=== PATIENT | female | born 1990 | race Caucasian/White ===

== ENCOUNTER 2016-10-31 08:56 | Inpatient (IN) | payer BC ==
[~2016-10-31] VITALS: Ht 152.4 cm; Wt 67.0 kg
[2016-10-31] VITALS (11 sets, daily range): BP systolic 114–121; BP diastolic 57–89; PULSE 62–80; RESP 12–27; TEMP 99.1
[~2016-10-31 08:56] MED LIST: BACTDS PO; CEFAZOLIN 1 GM INJ ONE; CEPH-443 PO; EXEDRIN; IBUP-1542 PO; ONDA4TAB14 PO
[2016-10-31] MEDS ORDERED: ONDANSETRON 4 MG INJ IV STA (10:26)
[2016-10-31] MEDS ORDERED: morphine 2 MG INJ IV STA (10:26)
[2016-10-31 10:56] LABS: ADD SCAN DIFF NO
[2016-10-31 10:58] LABS: BASOPHILS % 0.3 % (0.0-2.0); EOSINOPHILS # 0.1 10^3/ul (0.0-0.5); HEMATOCRIT 40.8 % (37.0-47.0); HEMOGLOBIN 13.8 g/dl (12.0-16.0); LYMPHOCYTES # 1.5 10^3/ul (0.8-2.9); LYMPHOCYTES % 19.7 % (15.0-51.0); MEAN CORPUSCULAR HEMOGLOBIN 31.8 pg (29.0-33.0); MEAN CORPUSCULAR HGB CONC 33.8 g/dl (32.0-37.0); MEAN PLATELET VOLUME 9.8 fl (7.4-10.4); MONOCYTE # 0.5 10^3/ul (0.3-0.9); MONOCYTES % 6.9 % (0.0-11.0); NEUTROPHIL # 5.6 10^3/ul (1.6-7.5); NEUTROPHILS % 71.5 % (39.0-77.0); PLATELET COUNT 310 10^3/UL (140-415); RED BLOOD COUNT 4.34 10^6/ul (4.20-5.40); WHITE BLOOD COUNT 7.8 10^3/ul (4.8-10.8)
--- NOTE | 2016-10-31 11:02 | ERD ---
ER Documentation Chief Complaint Date/Time DATE: 10/31/16 TIME: 11:00 Chief Complaint RIGHT LOWER QUADRANT PAIN,NAUSEA HPI 26-year-old female otherwise healthy with no known prior history of abdominal surgeries presents with abdominal pain in the right lower quadrant for the past 4 days. Patient states that her pain is radiating to the left lower quadrant as well. It is described as mild to moderate, dull and achy. She states that it improved yesterday with ibuprofen. No fevers or chills. She reports nausea but no vomiting. No blood in stools. She denies any vaginal bleeding. Patient 's last oral intake was at 2 AM this morning. ROS All systems reviewed and are negative except as per history of present illness. Medications Home Meds Active Scripts Ondansetron (Ondansetron Odt) 4 Mg Tab.rapdis, 4 MG PO Q6H Y for NAUSEA AND/OR VOMITING, #15 TAB Prov:HERBER DE LA GARZA PA-C 07/03/16 Ibuprofen* (Motrin*) 600 Mg Tab, 600 MG PO Q6H Y for PAIN AND OR ELEVATED TEMP, #30 TAB Prov:HERBER DE LA GARZA PA-C 07/03/16 Sulfamethoxazole-Trimethoprim* (Bactrim* DS) 800-160 Mg Tab, 1 TAB PO BID for 7 Days, TAB Prov:JAGRUTI GILMORE 04/07/15 Cephalexin* (Keflex*) 500 Mg Capsule, 500 MG PO QID for 7 Days, CAP Prov:JAGRUTI GILMORE 04/07/15 Reported Medications [Exedrin, Otc, Prn] No Conflict Check 09/19/12 Allergies Allergies: Coded Allergies: doxycycline (Verified Allergy, Mild, 10/31/16) PMhx/Soc Medical and Surgical Hx: pt denies Medical Hx, pt denies Surgical Hx History of Surgery: No Anesthesia Reaction: No Hx Neurological Disorder: No Hx Respiratory Disorders: No Hx Cardiac Disorders: No Hx Psychiatric Problems: No Hx Miscellaneous Medical Probl: No Hx Alcohol Use: No Hx Substance Use: No Hx Tobacco Use: No Smoking Status: Never smoker Physical Exam Vitals Vital Signs Date Time Temp Pulse Resp B/P Pulse Ox O2 Delivery O2 Flow Rate FiO2 10/31/16 09:15 98.6 71 18 109/69 98 Physical Exam = General: Well-developed, well-nourished. The patient appears in no acute distress. HEENT: Head is normocephalic, atraumatic. No scleral icterus. Neck: Supple. Nontender. Lungs: Clear to auscultation. Normal air movement. Heart: Regular rate and rhythm. S1 and S2 are normal. No murmurs, gallops, or rubs. Abdomen: Soft, tender in the right lower quadrant, with rebound pain nondistended. Bowel sounds are normoactive. Negative Bruce sign. Extremities: No clubbing or cyanosis. Normal pulses. Moving extremities x 4. No weakness. Neurologic: Alert and oriented 3. No focal deficits. Skin: Normal turgor. No rash or lesions. Result Diagram: 10/31/16 1040 10/31/16 1040 Results 24 hrs Laboratory Tests Test 10/31/16 10:40 10/31/16 10:57 White Blood Count 7.810^3/ul Red Blood Count 4.3410^6/ul Hemoglobin 13.8g/dl Hematocrit 40.8% Mean Corpuscular Volume 94.0fl Mean Corpuscular Hemoglobin 31.8pg Mean Corpuscular Hemoglobin Concent 33.8g/dl Red Cell Distribution Width 12.0% Platelet Count 95449^3/UL Mean Platelet Volume 9.8fl Neutrophils % 71.5% Lymphocytes % 19.7% Monocytes % 6.9% Eosinophils % 1.0% Basophils % 0.3% Nucleated Red Blood Cells % 0.0/100WBC Neutrophils # 5.610^3/ul Lymphocytes # 1.510^3/ul Monocytes # 0.510^3/ul Eosinophils # 0.110^3/ul Basophils # 0.010^3/ul Nucleated Red Blood Cells # 0.010^3/ul Sodium Level 145mmol/L Potassium Level 4.2mmol/L Chloride Level 103mmol/L Carbon Dioxide Level 29mmol/L Anion Gap 17 Blood Urea Nitrogen 11mg/dl Creatinine 0.51mg/dl Glucose Level 79mg/dl Calcium Level 9.4mg/dl Total Bilirubin 0.7mg/dl Direct Bilirubin 0.00mg/dl Indirect Bilirubin 0.7mg/dl Aspartate Amino Transf (AST/SGOT) 16IU/L Alanine Aminotransferase (ALT/SGPT) 19IU/L Alkaline Phosphatase 75IU/L Total Protein 7.9g/dl Albumin 4.6g/dl Globulin 3.30g/dl Albumin/Globulin Ratio 1.39 Lipase 109U/L Urine Color LT. YELLOW Urine Clarity CLEAR Urine pH 7.0 Urine Specific [place] <=1.005 Urine Ketones NEGATIVE Urine Nitrite NEGATIVE Urine Bilirubin NEGATIVE Urine Urobilinogen 0.2 E.U./dL Urine Leukocyte Esterase 1+ Urine Microscopic RBC 0-2/HPF Urine Microscopic WBC 2-5/HPF Urine Epithelial Cells OCCASIONAL Urine Bacteria OCCASIONAL Urine Hemoglobin TRACE Urine Glucose NEGATIVE% Urine Total Protein NEGATIVE Current Medications Medications (Trade) Dose Ordered Sig/Olesya Route PRN Reason Start Time Stop Time Status Last Admin Dose Admin Morphine Sulfate (morphine) 2 mg ONCE STAT IV 10/31/16 10:26 10/31/16 10:29 DC Ondansetron HCl 4 mg 4 mg ONCE STAT IV 10/31/16 10:26 10/31/16 10:29 DC Piperacillin Sod/ Tazobactam Sod (Zosyn 3.375gm/ 100 ml (Pmx)) 100 ml @ 200 mls/hr ONCE ONCE IVPB 10/31/16 12:30 10/31/16 12:59 DC 10/31/16 12:51 12-lead EKG(interpreted by supervising physician): Dr. Delvalle Rate/Rhythm: Normal Sinus Rhythm, rate of 54 QRS, ST, T-waves: No changes consistent w/ acute ischemia, no intervals, no dysrhythmias, no ectopy Impression: No evidence of ischemia or arrhythmia PROCEDURE: XR Chest PA CLINICAL INDICATION: Preop TECHNIQUE: An PA radiograph of the chest was submitted. COMPARISON: None. FINDINGS: Cardiovascular: The cardiovascular silhouette appears unremarkable. Lung Yuan: The lung yuan appear clear with no nodule, alveolar infiltrate, or interstitial prominence evident. Pleural Spaces: There is no pneumothorax or pleural fluid accumulation evident. Osseous Structures: The osseous structures appear intact. Soft Tissues: The soft tissues appear unremarkable. IMPRESSION: Unremarkable PA chest. Physician Charito Date Time Electronically viewed and signed by Physician Charito on 10/31/2016 12:56 RH/ CC: KING LOFTON PA-C PROCEDURE: CT Abdomen and Pelvis without contrast CLINICAL INDICATION: Right lower quadrant pain times 3-4 days TECHNIQUE: Transaxial images were obtained through the abdomen and pelvis on a multi-slice scanner without the intravenous contrast administration. No oral contrast had previously been given. Sagittal and coronal re-formations were subsequently reconstructed. One or more of the following dose reduction techniques were used: - Automated exposure control. - Adjustment of the mA and/or kV according to patient size. - Use of iterative reconstruction technique. Radiation dose: CTDIvol = 11.75 mGy; DLP = 674.04 mGy-cm. COMPARISON: Comparison previous pelvic sonogram done 07/03/2016. The previous sonogram was unremarkable. FINDINGS: Lung bases: The visualized lung bases appear unremarkable. Liver: The liver is mildly enlarged with no focal lesion identified. Gallbladder: The wall is not thickened. No radiopaque stones are identified. Bile ducts: The intra and extrahepatic bile ducts are normal in caliber. Pancreas: Appears normal with no mass or inflammation evident. Spleen: Normal in size with no focal lesion. Adrenals: Normal with no mass identified. Kidneys, ureters and bladder: The kidneys are normal in size and there is no mass, pathological calcification, or hydronephrosis evident. There is no perinephric stranding. The ureters are normal in caliber and no ureteroliths are identified. The bladder appears unremarkable. Reproductive organs: The uterus is retroverted. A 1.9 cm left adnexal cyst is noted. Stomach and bowel: The bowel appears unremarkable with no evidence of bowel obstruction or inflammation. The stomach appears unremarkable. Appendix: The vermiform appendix is prominent in caliber measuring 1.1 cm and there is stranding in the adjacent fat compatible with inflammatory change. Peritoneum: No free intraperitoneal fluid or air is identified. No abscess is evident. Aorta: Normal in caliber with no aneurysmal dilatation. IVC: Unremarkable. Lymph nodes: No pathologically enlarged nodes are identified. Osseous structures: The osseous elements appear intact. IMPRESSION: 1. Findings highly suspicious for acute appendicitis. There is no evidence of bowel obstruction and no abscess, free intraperitoneal fluid, or free intraperitoneal air is evident. 2. Mild hepatomegaly with no focal lesion. 3. Retroverted uterus with a 1.9 cm left adnexal cyst. Findings of acute appendicitis were telephoned by Bradford Silva MD to GERMAN Anderson on 10/31/2016 at 1220 hours. Physician Charito Date Time Electronically viewed and signed by Physician Charito on 10/31/2016 12:24 Procedures/MDM ED course: Patient had a line established, blood and urine were obtained. She was given Zofran 4 mg IV for nausea. She was offered morphine however she states that she feels comfortable at this time without any pain medication. 26-year-old female presents with acute appendicitis seen on CT abdomen pelvis today. She this time has been monitored, blood work was obtained, she is otherwise stable. She was presented to Dr. Sexton. She will be admitted for surgery. Departure Diagnosis: Primary Impression: Appendicitis Appendicitis type: acute appendicitis Acute appendicitis type: with localized peritonitis Qualified Code: K35.3 - Acute appendicitis with localized peritonitis Condition: Stable KING LOFTON PA-C Oct 31, 2016 11:02
[2016-10-31 11:17] LABS: ALBUMIN 4.6 g/dl (3.3-4.9)
[2016-10-31 11:18] LABS: POTASSIUM 4.2 mmol/L (3.5-5.1)
[2016-10-31 11:20] LABS: ALBUMIN/GLOBULIN RATIO 1.39; BILIRUBIN,INDIRECT 0.7 mg/dl (0-1.1); BILIRUBIN,TOTAL 0.7 mg/dl (0.2-1.3); CREATININE 0.51 mg/dl (0.44-1.00); TOTAL PROTEIN 7.9 g/dl (6.1-8.1)
[2016-10-31 11:21] LABS: CALCIUM 9.4 mg/dl (8.4-10.2)
[2016-10-31 12:15] LABS: ADD UMIC YES; URINE BILIRUBIN (Dip) NEGATIVE (NEGATIVE); URINE BLOOD (Dip) TRACE (NEGATIVE); URINE COLOR LT. YELLOW (YELLOW); URINE GLUCOSE (Dip) NEGATIVE (NEGATIVE); URINE KETONES (Dip) NEGATIVE (NEGATIVE); URINE LEUKOCYTE ESTERASE (Dip) 1+ (NEGATIVE); URINE NITRITE (Dip) NEGATIVE (NEGATIVE); URINE TOTAL PROTEIN (Dip) NEGATIVE (NEGATIVE); URINE UROBILINOGEN (Dip) 0.2 E.U./dL (0.1-1.0)
--- NOTE | 2016-10-31 12:25 | RADRPT ---
PROCEDURE: CT Abdomen and Pelvis without contrast CLINICAL INDICATION: Right lower quadrant pain times 3-4 days TECHNIQUE: Transaxial images were obtained through the abdomen and pelvis on a multi-slice scanner without the intravenous contrast administration. No oral contrast had previously been given. Sagit royal and coronal re-formations were subsequently reconstructed. One or more of the following dose reduction techniques were used: - Automated exposure control. - Adjustment of the mA and/or kV according to patient size. - Use of iterative reconstruction technique. Radiation dose: CTDIvol = 11.75 mGy; DLP = 674.04 mGy-cm. COMPARISON: Comparison previous pelvic sonogram done 07/03/2016. The previous sonogram was unremarkable. FINDINGS: Lung bases: The visualized lung bases appear unremarkable. Liver: The liver is mildly enlarged with no focal lesion identified. Gallbladder: The wall is not thickened. No radiopaque stones are identified. Bile ducts: The intra and extrahepatic bile ducts are normal in caliber. Pancreas: Appears normal with no mass or inflammation evident. Spleen: Normal in size with no focal lesion. Adrenals: Normal with no mass identified. Kidneys, ureters and bladder: The kidneys are normal in size and there is no mass, pathological calc ification, or hydronephrosis evident. There is no perinephric stranding. The ureters are normal in c aliber and no ureteroliths are identified. The bladder appears unremarkable. Reproductive organs: The uterus is retroverted. A 1.9 cm left adnexal cyst is noted. Stomach and bowel: The bowel appears unremarkable with no evidence of bowel obstruction or inflammat ion. The stomach appears unremarkable. Appendix: The vermiform appendix is prominent in caliber measuring 1.1 cm and there is stranding in the adjacent fat compatible with inflammatory change. Peritoneum: No free intraperitoneal fluid or air is identified. No abscess is evident. Aorta: Normal in caliber with no aneurysmal dilatation. IVC: Unremarkable. Lymph nodes: No pathologically enlarged nodes are identified. Osseous structures: The osseous elements appear intact. IMPRESSION: 1. Findings highly suspicious for acute appendicitis. There is no evidence of bowel obstruction an d no abscess, free intraperitoneal fluid, or free intraperitoneal air is evident. 2. Mild hepatomegaly with no focal lesion. 3. Retroverted uterus with a 1.9 cm left adnexal cyst. Findings of acute appendicitis were telephoned by Bradford Silva MD to GERMAN Anderson on 10/31/2016 at 1220 hours. Physician Charito Date Time Electronically viewed and signed by Physician Charito on 10/31/2016 12:24 /
[2016-10-31] MEDS ORDERED: PIPER-TAZO 3.375 GM IV (PMX) 100 ML IVPB ONE (12:30)
[2016-10-31 12:40] LABS: BACTERIA,URINE OCCASIONAL; URINE RBCS 0-2 /HPF (0)
--- NOTE | 2016-10-31 12:56 | RADRPT ---
PROCEDURE: XR Chest PA CLINICAL INDICATION: Preop TECHNIQUE: An PA radiograph of the chest was submitted. COMPARISON: None. FINDINGS: Cardiovascular: The cardiovascular silhouette appears unremarkable. Lung Amin: The lung amin appear clear with no nodule, alveolar infiltrate, or interstitial promi nence evident. Pleural Spaces: There is no pneumothorax or pleural fluid accumulation evident. Osseous Structures: The osseous structures appear intact. Soft Tissues: The soft tissues appear unremarkable. IMPRESSION: Unremarkable PA chest. Physician Charito Date Time Electronically viewed and signed by Sadie Silva Physician on 10/31/2016 12:56 /
[2016-10-31 13:20] LABS: INR 0.95; PROTIME 12.7 Sec (12.2-14.2)
[2016-10-31 13:32] LABS: PARTIAL THROMBOPLASTIN TIME 32.7 Sec (25.0-35.0)
--- NOTE | 2016-10-31 14:19 | EN ---
Date/Time of Note Date/Time of Note DATE: 10/31/16 TIME: 14:13 ER Progress Note HPI: 26-year-old woman presents with right lower quadrant abdominal pain and nausea. She states symptoms began yesterday with periumbilical pain and anorexia. She denies previous episodes, no dysuria, no chest pain or shortness of breath, no vomiting or diarrhea. Past medical history: None Physical exam: GENERAL: Well-developed, well-nourished, well-hydrated, in no apparent distress , looks nontoxic in appearance HEENT: Moist mucous membranes, pink conjunctiva, no cervical spine tenderness or step-off deformities, no goiter, no jaundice or icterus, extraocular movements intact without pain. No submandibular induration, and no pharyngeal erythema NEURO: Alert and oriented 3, cranial nerves II through XII intact bilaterally, pupils equal round reactive to light, no focal deficits or facial asymmetry, sensation intact distally Strength 5/5 in upper and lower extremities bilaterally CARDIAC: Regular rate and rhythm, no murmurs rubs or gallops LUNGS: Clear bilaterally no wheezing crackles or stridor ABDOMEN: Positive McBurney's point tenderness with voluntary guarding, no rigidity or rebound SKIN: Warm and dry to touch, no abrasions, contusions, or hematomas, no lacerations, no ecchymosis, no target lesions, and without ulcers EXTREMITIES: No clubbing cyanosis or edema, calves are bilaterally symmetrical, no Homans sign, no popliteal cord sign. Distal pulses equal and bilateral PSYCH: Normal affect without agitation or irritability Medical decision making: IV line was established patient was placed on alarm security or surveillance monitor rhythm strip revealed a sinus rhythm at about 80 bpm with upright P and T waves. Patient was afebrile. CT scan of the abdomen and pelvis was performed revealing acute appendicitis with dilated appendix and surrounding inflammatory changes. Please refer to radiologist dictation for full report. I ordered analgesics although patient refused, she was given 1 L normal saline intravenously and Zosyn 3.375 g IV. CBC and electrolytes were within normal limits, test negative, urine analysis unremarkable. I spoke to Dr. Roberson who will be her admitting physician. Surgical consultation was obtained with Dr. Medrano, he agreed to see the patient. Patient kept n.p.o. Pain controlled at this time and vital signs remained normal. Diagnostic impression: Acute appendicitis KYRA CALLAHAN MD Oct 31, 2016 14:19
[2016-10-31] MEDS ORDERED: SOD CHLORIDE 0.9% 1,000 ML IV ONE (14:30)
[2016-10-31] MEDS ORDERED: KETOROLAC 15 MG INJ IV STA (17:26)
[2016-10-31] MEDS ORDERED: BUPIVACAINE 0.25%/EPI (SDV) 30 ML INJ ONE (18:21)
[2016-10-31] MEDS ORDERED: PROPOFOL 20 ML ONE (19:15)
[2016-10-31] MEDS ORDERED: SUCCINYLCHOLINE CHLORIDE 100 MG/5 ML SYG IV ONE (19:15)
[2016-10-31] MEDS ORDERED: LIDOCAINE 2% (SDV) 5 ML INJ ONE (19:15)
[2016-10-31] MEDS ORDERED: FAMOTIDINE 20 MG INJ ONE (19:15)
[2016-10-31] MEDS ORDERED: GLYCOPYRROLATE 0.4 MG INJ ONE (19:15)
[2016-10-31] MEDS ORDERED: ROCURONIUM 50 MG INJ ONE (19:15)
[2016-10-31] MEDS ORDERED: ONDANSETRON 4 MG INJ ONE (19:15)
[2016-10-31] MEDS ORDERED: DEXAMETHASONE 4 MG/ML 1 ML INJ ONE (19:15)
[2016-10-31] MEDS ORDERED: MIDAZOLAM 1 MG/ML 2 ML INJ ONE (19:15)
[2016-10-31] MEDS ORDERED: NEOSTIGMINE 3 MG/3 ML SYRINGE ONE (19:15)
--- NOTE | 2016-10-31 19:17 | CONS ---
Date/Time of Note Date/Time of Note DATE: 10/31/16 TIME: 19:12 Assessment/Plan Assessment/Plan Chief Complaint/Hosp Course 26-year-old female with acute appendicitis. This has been confirmed via CT scan. * Continue nothing by mouth * Broad-spectrum intravenous antibiotics * IV fluid hydration * Pain control Definitive treatment will consist of laparoscopic appendectomy; possible open. This has been explained to the patient along with all risks and benefits of the procedure. She fully understands and is agreeable to the treatment plan as outlined. Informed consent will be obtained and the patient will be scheduled for laparoscopic appendectomy; possible open Problems: Consultation Date/Type/Reason Admit Date/Time Date of Consultation: Oct 31, 2016 Type of Consultation: GENERAL SURGERY Reason for Consultation Abdominal pain Hx of Present Illness Patient is an otherwise healthy 26-year-old female who presented to the emergency room complaining of a 1 day history of abdominal pain. The pain initially was in the periumbilical region however over the course of last 24 hours migrated towards the right lower quadrant. It has been associated with nausea, but no vomiting. She denies any diarrhea or constipation. She denies any fever/chills. There has been no prior episodes of similar pain in the past. Patient reports she last ate at approximately 1 AM. She denies any dysuria. On arrival to the emergency room a CT scan of the abdomen and pelvis was done which was consistent with acute appendicitis. A 14 point review of systems was conducted and was negative except for that which was mentioned in history of present illness Past Medical History Patient is being worked up for a possible thyroid disorder. Otherwise past medical history is negative. Past Surgical History Past Surgical Hx: no surgical history Family History Significant Family History: no pertinent family hx Social History Alcohol Use: occasionally Smoking Status: Never smoker Exam/Review of Systems Vital Signs Vitals Vital Signs Date Time Temp Pulse Resp B/P Pulse Ox O2 Delivery O2 Flow Rate FiO2 10/31/16 15:30 99.1 59 16 108/80 98 Room Air Exam GENERAL: Awake, alert, oriented 3. No acute distress. SKIN: No jaundice. HEENT: PERRLA, EOMI, No Scleral Icterus NECK: Supple without JVD. Enlarged right lobe of thyroid. CARDIOVASCULAR: S1S2, regular rate and rhythm. No murmurs appreciated. RESPIRATORY: Clear to auscultation bilaterally. ABDOMEN: Soft, bowel sounds present, nondistended, there is right lower quadrant tenderness to palpation with localized rebound and positive Rovsing sign. EXTREMITIES: Free range of motion 4. No cyanosis, edema, or clubbing. NEUROLOGIC: Cranial nerves II-XII are intact. Sensation is intact grossly. Results Result Diagram: 10/31/16 1040 10/31/16 1040 Results 24 hrs Laboratory Tests Test 10/31/16 10:40 10/31/16 10:57 10/31/16 13:00 White Blood Count 7.8 # Red Blood Count 4.34 Hemoglobin 13.8 Hematocrit 40.8 Mean Corpuscular Volume 94.0 Mean Corpuscular Hemoglobin 31.8 Mean Corpuscular Hemoglobin Concent 33.8 Red Cell Distribution Width 12.0 Platelet Count 310 Mean Platelet Volume 9.8 Neutrophils % 71.5 Lymphocytes % 19.7 Monocytes % 6.9 Eosinophils % 1.0 Basophils % 0.3 Nucleated Red Blood Cells % 0.0 Neutrophils # 5.6 Lymphocytes # 1.5 Monocytes # 0.5 Eosinophils # 0.1 Basophils # 0.0 Nucleated Red Blood Cells # 0.0 Sodium Level 145 H Potassium Level 4.2 Chloride Level 103 Carbon Dioxide Level 29 Anion Gap 17 H Blood Urea Nitrogen 11 Creatinine 0.51 Glucose Level 79 Calcium Level 9.4 Total Bilirubin 0.7 Direct Bilirubin 0.00 Indirect Bilirubin 0.7 Aspartate Amino Transf (AST/SGOT) 16 Alanine Aminotransferase (ALT/SGPT) 19 Alkaline Phosphatase 75 Total Protein 7.9 Albumin 4.6 Globulin 3.30 H Albumin/Globulin Ratio 1.39 Lipase 109 Urine Color LT. YELLOW Urine Clarity CLEAR Urine pH 7.0 Urine Specific [place] <=1.005 L Urine Ketones NEGATIVE Urine Nitrite NEGATIVE Urine Bilirubin NEGATIVE Urine Urobilinogen 0.2 E.U./dL Urine Leukocyte Esterase 1+ H Urine Microscopic RBC 0-2 Urine Microscopic WBC 2-5 Urine Epithelial Cells OCCASIONAL Urine Bacteria OCCASIONAL Urine Hemoglobin TRACE Urine Glucose NEGATIVE Urine Total Protein NEGATIVE Prothrombin Time 12.7 Prothrombin Time Ratio 1.0 INR International Normalized Ratio 0.95 Activated Partial Thromboplast Time 32.7 Procedures Procedures PROCEDURE: CT Abdomen and Pelvis without contrast CLINICAL INDICATION: Right lower quadrant pain times 3-4 days TECHNIQUE: Transaxial images were obtained through the abdomen and pelvis on a multi-slice scanner without the intravenous contrast administration. No oral contrast had previously been given. Sagittal and coronal re-formations were subsequently reconstructed. One or more of the following dose reduction techniques were used: - Automated exposure control. - Adjustment of the mA and/or kV according to patient size. - Use of iterative reconstruction technique. Radiation dose: CTDIvol = 11.75 mGy; DLP = 674.04 mGy-cm. COMPARISON: Comparison previous pelvic sonogram done 07/03/2016. The previous sonogram was unremarkable. FINDINGS: Lung bases: The visualized lung bases appear unremarkable. Liver: The liver is mildly enlarged with no focal lesion identified. Gallbladder: The wall is not thickened. No radiopaque stones are identified. Bile ducts: The intra and extrahepatic bile ducts are normal in caliber. Pancreas: Appears normal with no mass or inflammation evident. Spleen: Normal in size with no focal lesion. Adrenals: Normal with no mass identified. Kidneys, ureters and bladder: The kidneys are normal in size and there is no mass, pathological calcification, or hydronephrosis evident. There is no perinephric stranding. The ureters are normal in caliber and no ureteroliths are identified. The bladder appears unremarkable. Reproductive organs: The uterus is retroverted. A 1.9 cm left adnexal cyst is noted. Stomach and bowel: The bowel appears unremarkable with no evidence of bowel obstruction or inflammation. The stomach appears unremarkable. Appendix: The vermiform appendix is prominent in caliber measuring 1.1 cm and there is stranding in the adjacent fat compatible with inflammatory change. Peritoneum: No free intraperitoneal fluid or air is identified. No abscess is evident. Aorta: Normal in caliber with no aneurysmal dilatation. IVC: Unremarkable. Lymph nodes: No pathologically enlarged nodes are identified. Osseous structures: The osseous elements appear intact. IMPRESSION: 1. Findings highly suspicious for acute appendicitis. There is no evidence of bowel obstruction and no abscess, free intraperitoneal fluid, or free intraperitoneal air is evident. 2. Mild hepatomegaly with no focal lesion. 3. Retroverted uterus with a 1.9 cm left adnexal cyst. Findings of acute appendicitis were telephoned by Bradford Silva MD to GERMAN Anderson on 10/31/2016 at 1220 hours. Sadie Silva, Physician Date Time Electronically viewed and signed by Sadie Silva, Physician on 10/31/2016 12:24 LAURI DE LA TORRE MD Oct 31, 2016 19:17
[2016-10-31] MEDS ORDERED: FENTAnyl 50 MCG/ML VIAL ONE (19:22)
[2016-10-31] MEDS ORDERED: HYDROmorphONE 2 MG/ML SYG ONE (20:08)
--- NOTE | 2016-10-31 20:25 | OPR ---
Date/Time of Note Date/Time of Note DATE: 10/31/16 TIME: 20:22 Operative Report Procedure Date: Oct 31, 2016 Preoperative Diagnosis Acute appendicitis with localized peritonitis Postoperative Diagnosis Acute appendicitis with localized peritonitis Operation Performed Laparoscopic appendectomy Surgeon: LAURI DE LA TORRE MD Anesthesia: general Anesthesiologist: BURKE GUNTER MD Estimated Blood Loss: none Specimens Appendix Complications: None Pt Condition Post Procedure: stable Disposition: PACU Indications Patient is a 26-year-old female who presented to the emergency room complaining of a 1 day history of right lower quadrant abdominal pain. The patient had clinical signs and symptoms of acute appendicitis which was confirmed via CT scan. She was therefore admitted, kept nothing by mouth, started on broad-spectrum intravenous antibiotics and scheduled for laparoscopic appendectomy; possible open as definitive treatment. All risks and benefits of the procedure including but not limited to: Wound infection, excessive bleeding, injury to intra-abdominal organs, conversion to open procedure etc. were explained to the patient in full detail. The patient fully understood and wished to proceed with the procedure. Informed consent was therefore obtained. Operative\Procedure Findings Nonperforated acute appendicitis Procedure Description The patient was brought to the operating room and placed supine on the operating table. Bilateral sequential compression devices were placed on both lower extremities. A dose of broad-spectrum perioperative intravenous antibiotics was given. After the induction of smooth general endotracheal anesthesia the patient's abdomen was prepped and draped in the standard surgical fashion. A 5 mm incision was made in the superior umbilicus and a Veress needle was used to access the intra-abdominal cavity atraumatically. Pneumoperitoneum was then obtained and the Veress needle was exchanged for a 5 mm trocar through which a 5 mm laparoscope was placed. Two further working ports were then placed, a 12 mm port in the midline suprapubic area and another 5 mm port midway between the suprapubic and umbilical port sites. All port sites were anesthetized with 0.25% Marcaine with epinephrine prior to incision. Attention was then turned towards the right lower quadrant. Using atraumatic graspers, the appendix was grasped and retracted superiorly and medially exposing the mesoappendix. The appendix appeared erythematous and inflamed consistent with acute appendicitis, but not perforated. Using the harmonic scalpel the mesoappendix was taken down to the level of the appendiceal base. The appendix was then transected at its base using a firing of the laparoscopic MARVEL stapler. Once completely free the appendix was placed in an Endo Catch bag and withdrawn through the suprapubic port site and passed off the field as specimen. Hemostasis was then inspected for and noted to be total. The fascia of the suprapubic port site was reapproximated using an Endo Close device and 0 Vicryl suture. Pneumoperitoneum was then released and all remaining trochars were withdrawn under direct vision. The subcutaneous tissues were irrigated with more warm normal saline and further local anesthesia was applied around the skin of the incision sites. The skin was then reapproximated using 4-0 Monocryl sutures in subcuticular fashion. The incisions were cleaned and Dermabond was applied and the patient was awoken from anesthesia and transported to the recovery room in stable condition. All counts were correct at the end of the case 2. LAURI DE LA TORRE MD Oct 31, 2016 20:25
[2016-10-31] MEDS ORDERED: PROCHLORPERAZINE 10 MG INJ IV PRN (20:30)
[2016-10-31] MEDS ORDERED: DIPHENHYDRAMINE 50 MG INJ IV PRN (20:30)
[2016-10-31] MEDS ORDERED: ACETAMINOPHEN 325 MG TAB PO PRN (20:30)
[2016-10-31] MEDS ORDERED: FENTAnyl 50 MCG/ML VIAL IV PRN ×3 (20:30)
[2016-10-31] MEDS ORDERED: HYDROmorphONE (0.2 MG/ML) 10ML SYG IV PRN ×3 (20:30)
[2016-10-31] MEDS ORDERED: HYDROmorphONE 1 MG/ML SYG IV PRN (20:30)
[2016-10-31] MEDS ORDERED: ONDANSETRON 4 MG INJ IV PRN (20:30)
[2016-10-31] MEDS ORDERED: MEPERIDINE 25 MG INJ IV PRN (20:30)
[2016-10-31] MEDS ORDERED: IBUPROFEN 600 MG TAB PO PRN (20:30)
--- NOTE | 2016-10-31 21:31 | HP ---
DATE OF ADMISSION: 10/31/2016 CHIEF COMPLAINT: Right lower quadrant pain. HISTORY OF PRESENT ILLNESS: The patient is a 26-year-old female with no significant past medical hi story, came to ER with lower abdominal pain for 1 day. The patient initially reported the pain was in periumbilical area, then it migrated towards right lower quadrant. The patient did not have any vomiting, although she did have some nausea. The patient did not have any fever or chills. No histo ry of dysuria, hematuria. No history of vaginal bleed. The patient's last menstrual period was in early October. No reported headache, dizziness, syncope. No history of sore throat, cough, shortness of breath. Rest of review of systems unremarkable. CT of the abdomen and pelvis in ER revealed ac tony appendicitis. White count, however, was normal. The patient is being admitted for further eval uation and management. Dr. Holger Medrano has been called from surgery standpoint. PAST MEDICAL HISTORY: As stated above. PAST SURGICAL HISTORY: None. ALLERGIES: DOXYCYCLINE. SOCIAL HISTORY: No smoking, no alcohol. FAMILY HISTORY: Noncontributory for patient's condition. PHYSICAL EXAMINATION: GENERAL: The patient is conscious, awake, alert. VITAL SIGNS: Temperature 99.5, pulse 98, respirations 18, blood pressure 101/65, O2 saturation 100% on room air. HEENT: Conjunctivae, lids normal. Oropharynx clear. NECK: Supple. No mass, no thyromegaly. CHEST: Clear to auscultation. CARDIOVASCULAR: S1, S2 normal. No murmur. ABDOMEN: Soft. Right lower quadrant tenderness present. No guarding, rigidity. Bowel sounds plus . EXTREMITIES: No leg edema. NEUROLOGIC: The patient is awake, alert with no gross focal deficit. LABORATORY DATA: CBC unremarkable. Chemistry: Sodium 145, potassium 4.2, BUN 11, creatinine 0.5. Liver enzymes normal. Lipase normal. IMPRESSION: Acute appendicitis. PLAN: The patient admitted on medical floor. The patient will be kept n.p.o. The patient has been started on IV fluid. The patient did not want to take morphine. Therefore, I suggested to ER andrea garduno to give her IV Toradol. The patient will be taken to OR. Further recommendation will depend on patient's hospital course. Dictated By: ILAN RAMIREZ/DANNY Conf#: [id number] DID#: [id number]
[2016-10-31] MEDS: DOCUSATE SODIUM 100 MG CAP PO SCH (23:39)
[2016-10-31] MEDS: KETOROLAC 30 MG INJ IV PRN (23:55)
[2016-11-01 00:22] VITALS: Ht 152.4 cm; Wt 67.0 kg
[2016-11-01 01:25] VITALS: BP 120/68; RESP 20
[2016-11-01 04:56] LABS: ADD SCAN DIFF NO
[2016-11-01 05:10] LABS: POTASSIUM 4.1 mmol/L (3.5-5.1)
[2016-11-01 05:13] LABS: CREATININE 0.53 mg/dl (0.44-1.00)
[2016-11-01 05:14] LABS: CALCIUM 8.7 mg/dl (8.4-10.2)
[2016-11-01 05:24] LABS: ABNORMAL IP MESSAGE 1; BASOPHILS % 0.1 % (0.0-2.0); HEMATOCRIT 35.9 % (37.0-47.0); HEMOGLOBIN 12.2 g/dl (12.0-16.0); LYMPHOCYTES # 0.6 10^3/ul (0.8-2.9); MEAN CORPUSCULAR HEMOGLOBIN 31.9 pg (29.0-33.0); MONOCYTE # 0.3 10^3/ul (0.3-0.9); MONOCYTES % 3.1 % (0.0-11.0); NEUTROPHIL # 7.3 10^3/ul (1.6-7.5); NEUTROPHILS % 89.4 % (39.0-77.0); PLATELET COUNT 296 10^3/UL (140-415); RED BLOOD COUNT 3.82 10^6/ul (4.20-5.40); WHITE BLOOD COUNT 8.2 10^3/ul (4.8-10.8)
[2016-11-01 06:00] LABS: LYMPHOCYTES % 6.8 % (15.0-51.0)
[2016-11-01 08:19] VITALS: BP 100/54; RESP 18
[2016-11-01] MEDS: DOCUSATE SODIUM 100 MG CAP PO SCH ×2 (09:00→20:15)
--- NOTE | 2016-11-01 09:11 | PN ---
Date/Time of Note Date/Time of Note DATE: 11/01/16 TIME: 09:08 Assessment/Plan Lines/Catheters IV Catheter Type (from Nrsg): Peripheral IV Assessment/Plan Assessment/Plan 26-year-old female status post laparoscopic appendectomy postop day #1 * Hep-Lock IV fluids * Out of bed/incentive spirometry * Surgically stable for discharge home once medically cleared * Follow-up in office in 2 weeks Discussed with patient and nurse. Ensured all their questions were answered. Subjective 24 Hr Interval Summary Doing okay. Pain is controlled. Afebrile. Exam/Review of Systems Vital Signs Vitals Vital Signs Date Time Temp Pulse Resp B/P Pulse Ox O2 Delivery O2 Flow Rate FiO2 11/01/16 08:19 97.9 71 18 100/54 99 10/31/16 21:11 Nasal Cannula 2.0 Intake and Output 10/31/16 10/31/16 11/01/16 15:00 23:00 07:00 Intake Total 1000 ml Output Total 10 ml Balance 990 ml Exam Free Text/Dictation GENERAL: Awake, alert, oriented 3. No acute distress. CARDIOVASCULAR: S1S2, regular rate and rhythm. No murmurs appreciated. RESPIRATORY: Clear to auscultation bilaterally. ABDOMEN: Soft, bowel sounds present, nondistended, appropriate incisional tenderness palpation. INCISIONS: Clean, dry, intact EXTREMITIES: Free range of motion 4. No cyanosis, edema, or clubbing. Results Result Diagram: 11/01/16 0430 11/01/16 0430 LAURI DE LA TORRE MD Nov 01, 2016 09:11
[2016-11-01] MEDS: HYDROCODONE/APAP (5/325) TAB PO PRN ×2 (09:19→17:15)
[2016-11-01] MEDS: ONDANSETRON 4 MG INJ IV PRN ×2 (12:27→18:23)
[2016-11-01] MEDS: KETOROLAC 30 MG INJ IV PRN (18:24)
--- NOTE | 2016-11-01 19:32 | PN ---
Date/Time of Note Date/Time of Note DATE: 11/01/16 TIME: 19:30 Assessment/Plan VTE Prophylaxis VTE Prophylaxis Intervention: SCD's Lines/Catheters IV Catheter Type (from Nrs): Peripheral IV Assessment/Plan Assessment/Plan -Acute appendicitis with localized peritonitis, status post laparoscopic appendectomy. Continue antibiotics. Follow-up surgical recommendations. Further recommendations based on clinical course. Plan of care discussed with Dr. Roberson. Subjective 24 Hr Interval Summary Free Text/Dictation Patient is alert awake alert, complaining of nausea, denies vomiting. Exam/Review of Systems Vital Signs Vitals Vital Signs Date Time Temp Pulse Resp B/P Pulse Ox O2 Delivery O2 Flow Rate FiO2 11/01/16 08:19 97.9 71 18 100/54 99 10/31/16 21:11 Nasal Cannula 2.0 Intake and Output 10/31/16 10/31/16 11/01/16 14:59 22:59 06:59 Intake Total 1000 ml Output Total 10 ml Balance 990 ml Exam Constitutional: alert, oriented Psych: no complaints Head: normocephalic Eyes: nl conjunctiva ENMT: nl external ears & nose Neck: supple Respiratory: clear to auscultation Cardiovascular: nl pulses, regular rate and rhythm Gastrointestinal: non-tender, other (Abdomen status post surgery), soft Musculoskeletal: nl extremities to inspection Extremities: normal pulses Neurological: MANAGER PROPOSAL II-XII intact Results Result Diagram: 11/01/16 0430 11/01/16 0430 Results 24 hrs Laboratory Tests Test 11/01/16 04:30 White Blood Count 8.2 Red Blood Count 3.82 L Hemoglobin 12.2 Hematocrit 35.9 L Mean Corpuscular Volume 94.0 Mean Corpuscular Hemoglobin 31.9 Mean Corpuscular Hemoglobin Concent 34.0 Red Cell Distribution Width 12.0 Platelet Count 296 Mean Platelet Volume 10.0 Neutrophils % 89.4 H Lymphocytes % 6.8 L Monocytes % 3.1 Eosinophils % 0.0 Basophils % 0.1 Nucleated Red Blood Cells % 0.0 Neutrophils # 7.3 Lymphocytes # 0.6 L Monocytes # 0.3 Eosinophils # 0.0 Basophils # 0.0 Nucleated Red Blood Cells # 0.0 Sodium Level 141 Potassium Level 4.1 Chloride Level 102 Carbon Dioxide Level 26 Anion Gap 17 H Blood Urea Nitrogen 7 Creatinine 0.53 Glucose Level 115 Calcium Level 8.7 Medications Medications Current Medications Hydromorphone HCl (Dilaudid) 0.5 mg Q6H PRN IV PAIN LEVEL 6-10; Start 10/31/16 at 20:30 Acetaminophen/ Hydrocodone Bitart ([place] (5/325)) 1 tab Q6H PRN PO PAIN LEVEL 6 -10 Last administered on 11/01/16 17:15; Admin Dose 1 TAB; Start 10/31/16 at 20 :30 Ketorolac Tromethamine (Toradol) 30 mg Q6H PRN IV PAIN Last administered on 18:24; Admin Dose 30 MG; Start 10/31/16 at 20:30; Stop 11/03/16 at 20:29 Acetaminophen (Tylenol Tab) 650 mg Q6H PRN PO PAIN AND OR ELEVATED TEMP; Start 10/31/16 at 20:30 Ibuprofen (Motrin) 600 mg Q6H PRN PO PAIN LEVEL 1-5; Start 10/31/16 at 20:30 Ondansetron HCl (Zofran Inj) 4 mg Q6H PRN IV NAUSEA AND/OR VOMITING Last administered on 11/01/16 18:23; Admin Dose 4 MG; Start 10/31/16 at 20:30 Docusate Sodium 100 mg 100 mg BID PO Last administered on 10/31/16 23:39; Admin Dose 100 MG; Start 10/31/16 at 21:00 Ampicillin Sodium/ Sulbactam Sodium (Unasyn 1.5gm/NS (Pmx)) 50 ml @ 100 mls/hr Q6 IVPB ; Start 11/01/16 at 19:30 LORIE QUIJANO Nov 01, 2016 19:32
[2016-11-01] MEDS: AMPICILLIN/SULB 1.5GM/NS (PMX) 50 ML IVPB SCH (19:57)
[2016-11-02] MEDS: AMPICILLIN/SULB 1.5GM/NS (PMX) 50 ML IVPB SCH ×3 (01:08→12:29)
[2016-11-02] MEDS: KETOROLAC 30 MG INJ IV PRN (01:45)
[2016-11-02 04:56] LABS: ADD SCAN DIFF NO
[2016-11-02 05:04] LABS: BASOPHILS % 0.4 % (0.0-2.0); EOSINOPHILS # 0.1 10^3/ul (0.0-0.5); EOSINOPHILS % 1.3 % (0.0-7.0); HEMATOCRIT 32.3 % (37.0-47.0); HEMOGLOBIN 10.8 g/dl (12.0-16.0); LYMPHOCYTES # 2.2 10^3/ul (0.8-2.9); LYMPHOCYTES % 32.1 % (15.0-51.0); MEAN CORPUSCULAR HEMOGLOBIN 31.6 pg (29.0-33.0); MEAN CORPUSCULAR HGB CONC 33.4 g/dl (32.0-37.0); MEAN CORPUSCULAR VOLUME 94.4 fl (82.0-101.0); MONOCYTE # 0.8 10^3/ul (0.3-0.9); MONOCYTES % 10.9 % (0.0-11.0); NEUTROPHIL # 3.8 10^3/ul (1.6-7.5); PLATELET COUNT 260 10^3/UL (140-415); RED BLOOD COUNT 3.42 10^6/ul (4.20-5.40); RED CELL DISTRIBUTION WIDTH 12.2 % (11.5-14.5); WHITE BLOOD COUNT 6.9 10^3/ul (4.8-10.8)
[2016-11-02 05:17] LABS: POTASSIUM 3.8 mmol/L (3.5-5.1)
[2016-11-02 05:19] LABS: CREATININE 0.59 mg/dl (0.44-1.00)
[2016-11-02 05:20] LABS: CALCIUM 8.7 mg/dl (8.4-10.2)
[2016-11-02] MEDS: HYDROCODONE/APAP (5/325) TAB PO PRN (06:25)
[2016-11-02 08:19] VITALS: BP 103/59; RESP 20
[2016-11-02] MEDS: DOCUSATE SODIUM 100 MG CAP PO SCH (10:11)
--- NOTE | 2016-11-02 13:44 | PN ---
Date/Time of Note Date/Time of Note DATE: 11/02/16 TIME: 13:42 Assessment/Plan VTE Prophylaxis VTE Prophylaxis Intervention: other Lines/Catheters IV [facility]from [facility] Saline Lock Assessment/Plan Assessment/Plan -Acute appendicitis with localized peritonitis, status post laparoscopic appendectomy. Continue antibiotics. Follow-up surgical recommendations. Further recommendations based on clinical course. Plan of care discussed with Dr. Roberson. Subjective 24 Hr Interval Summary Constitutional: improved Eyes: no complaints ENT: no complaints Respiratory: no complaints Cardiovascular: no complaints Gastrointestinal: pain Genitourinary: no complaints Musculoskeletal: no complaints Skin: no complaints Neurologic: no complaints Exam/Review of Systems Vital Signs Vitals Vital Signs Date Time Temp Pulse Resp B/P Pulse Ox O2 Delivery O2 Flow Rate FiO2 11/02/16 08:19 97.8 77 20 103/59 98 10/31/16 21:11 Nasal Cannula 2.0 Intake and Output 11/01/16 11/01/16 11/02/16 15:00 23:00 07:00 Intake Total 530 ml 190 ml Balance 530 ml 190 ml Exam Constitutional: alert, oriented, well developed Psych: nl mood/affect Head: atraumatic Eyes: EOMI, PERRL, nl sclera ENMT: nl external ears & nose Respiratory: clear to auscultation Cardiovascular: nl pulses Gastrointestinal: non-tender, soft Musculoskeletal: nl extremities to inspection Extremities: normal pulses Neurological: nl mental status, nl speech Skin: nl turgor, other Lymph: nl lymph nodes Results Result Diagram: 11/02/16 0437 11/02/16 0431 Results 24 hrs Laboratory Tests Test 11/02/16 04:31 11/02/16 04:37 Sodium Level 140 Potassium Level 3.8 Chloride Level 104 Carbon Dioxide Level 28 Anion Gap 12 Blood Urea Nitrogen 14 Creatinine 0.59 Glucose Level 103 Calcium Level 8.7 White Blood Count 6.9 Red Blood Count 3.42 L Hemoglobin 10.8 L Hematocrit 32.3 L Mean Corpuscular Volume 94.4 Mean Corpuscular Hemoglobin 31.6 Mean Corpuscular Hemoglobin Concent 33.4 Red Cell Distribution Width 12.2 Platelet Count 260 Mean Platelet Volume 10.0 Neutrophils % 55.0 Lymphocytes % 32.1 Monocytes % 10.9 Eosinophils % 1.3 Basophils % 0.4 Nucleated Red Blood Cells % 0.0 Neutrophils # 3.8 Lymphocytes # 2.2 Monocytes # 0.8 Eosinophils # 0.1 Basophils # 0.0 Nucleated Red Blood Cells # 0.0 Medications Medications Current Medications Hydromorphone HCl (Dilaudid) 0.5 mg Q6H PRN IV PAIN LEVEL 6-10 Last administered on 11/01/16 20:05; Admin Dose 0.5 MG; Start 10/31/16 at 20:30 Acetaminophen/ Hydrocodone Bitart ([place] (5/325)) 1 tab Q6H PRN PO PAIN LEVEL 6 -10 Last administered on 11/02/16 06:25; Admin Dose 1 TAB; Start 10/31/16 at 20 :30 Ketorolac Tromethamine (Toradol) 30 mg Q6H PRN IV PAIN Last administered on 01:45; Admin Dose 30 MG; Start 10/31/16 at 20:30; Stop 11/03/16 at 20:29 Acetaminophen (Tylenol Tab) 650 mg Q6H PRN PO PAIN AND OR ELEVATED TEMP; Start 10/31/16 at 20:30 Ibuprofen (Motrin) 600 mg Q6H PRN PO PAIN LEVEL 1-5; Start 10/31/16 at 20:30 Ondansetron HCl (Zofran Inj) 4 mg Q6H PRN IV NAUSEA AND/OR VOMITING Last administered on 11/01/16 18:23; Admin Dose 4 MG; Start 10/31/16 at 20:30 Docusate Sodium 100 mg 100 mg BID PO Last administered on 11/02/16 10:11; Admin Dose 100 MG; Start 10/31/16 at 21:00 Ampicillin Sodium/ Sulbactam Sodium (Unasyn 1.5gm/NS (Pmx)) 50 ml @ 100 mls/hr Q6 IVPB Last administered on 11/02/16 12:29; Admin Dose 100 MLS/HR; Start at 19:30 JOSE ALBERTO GRIGGS Nov 02, 2016 13:43
--- NOTE | 2016-11-02 13:45 | PDOCDIS ---
Discharge Instructions HOME CARE INSTRUCTIONS: Diet Instructions: RegularSpecial Diet: regular ACTIVITY: Activity Restrictions: Slowly Increase Activity Rest between Activity Avoid heavy lifting Weight Bearing Bathing Restrictions: JOSE ALBERTO Thompson Nov 02, 2016 13:44
[2016-11-02] MEDS ORDERED: AMOX1TAB10 PO (13:48)
[2016-11-02] MEDS ORDERED: HYDR-3498 PO (13:48)
[2016-11-02] MEDS ORDERED: PANT40TA4 PO (13:50)
[2016-11-02] MEDS ORDERED: DOCU-216 PO (13:50)
--- NOTE | 2016-11-02 13:51 | DS ---
Date/Time of Note Date/Time of Note DATE: 11/02/16 TIME: 13:51 Discharge Summary Admission/Discharge Info Admit Date/Time Oct 31, 2016 at 12:55 Discharge Date/Time Home Meds Active Scripts Pantoprazole* (Pantoprazole*) 40 Mg Tablet.dr, 40 MG PO DAILY, #30 Prov:JOSE ALBERTO GRIGGS 11/02/16 Docusate Sodium (Dok) 100 Mg Capsule, 100 MG PO DAILY, #20 CAP Prov:JOSE ALBERTO GRIGGS 11/02/16 Amoxicillin/Potassium Clav (Amox-Clav 875-125 mg Tablet) 875-125 mg Tab, 1 TAB PO BID for 7 Days, #20 TAB Prov:JOSE ALBERTO GRIGGS 11/02/16 Hydrocodone Bit-Acetaminophen (Hydrocodone Bit-APAP) 5-325MG Tablet, 1 TAB PO Q6H Y for PAIN LEVEL 6-10, #10 TAB Prov:JOSE ALBERTO GRIGGS 11/02/16 Discontinued Reported Medications [Exedrin, Otc, Prn] No Conflict Check 09/19/12 Discontinued Scripts Ondansetron (Ondansetron Odt) 4 Mg Tab.rapdis, 4 MG PO Q6H Y for NAUSEA AND/OR VOMITING, #15 TAB Prov:HERBER DE LA GARZA PA-C 07/03/16 Ibuprofen* (Motrin*) 600 Mg Tab, 600 MG PO Q6H Y for PAIN AND OR ELEVATED TEMP, #30 TAB Prov:HERBER DE LA GARZA PA-C 07/03/16 Sulfamethoxazole-Trimethoprim* (Bactrim* DS) 800-160 Mg Tab, 1 TAB PO BID for 7 Days, TAB Prov:JAGRUTI GILMORE 04/07/15 Cephalexin* (Keflex*) 500 Mg Capsule, 500 MG PO QID for 7 Days, CAP Prov:JAGRUTI GILMORE 04/07/15 Pending Labs Laboratory Tests Test 11/02/16 04:31 11/02/16 04:37 Sodium Level 140mmol/L (135-144) Potassium Level 3.8mmol/L (3.5-5.1) Chloride Level 104mmol/L (97-110) Carbon Dioxide Level 28mmol/L (21-31) Anion Gap 12 (8-16) Blood Urea Nitrogen 14mg/dl (7-20) Creatinine 0.59mg/dl (0.44-1.00) Glucose Level 103mg/dl (70-220) Calcium Level 8.7mg/dl (8.4-10.2) White Blood Count 6.910^3/ul (4.8-10.8) Red Blood Count 3.4210^6/ul (4.20-5.40) Hemoglobin 10.8g/dl (12.0-16.0) Hematocrit 32.3% (37.0-47.0) Mean Corpuscular Volume 94.4fl (82.0-101.0) Mean Corpuscular Hemoglobin 31.6pg (29.0-33.0) Mean Corpuscular Hemoglobin Concent 33.4g/dl (32.0-37.0) Red Cell Distribution Width 12.2% (11.5-14.5) Platelet Count 14354^3/UL (140-415) Mean Platelet Volume 10.0fl (7.4-10.4) Neutrophils % 55.0% (39.0-77.0) Lymphocytes % 32.1% (15.0-51.0) Monocytes % 10.9% (0.0-11.0) Eosinophils % 1.3% (0.0-7.0) Basophils % 0.4% (0.0-2.0) Nucleated Red Blood Cells % 0.0/100WBC (0.0-0.0) Neutrophils # 3.810^3/ul (1.6-7.5) Lymphocytes # 2.210^3/ul (0.8-2.9) Monocytes # 0.810^3/ul (0.3-0.9) Eosinophils # 0.110^3/ul (0.0-0.5) Basophils # 0.010^3/ul (0.0-0.1) Nucleated Red Blood Cells # 0.010^3/ul (0.0-0.0) JOSE ALBERTO GRIGGS Nov 02, 2016 13:51
[2016-11-02] MEDS ORDERED: PANTOPRAZOLE (EC) 40 MG TAB PO SCH ×2 (18:00)
== END 2016-11-02 18:10 | disposition home or self-care (01) | DRG 340 ==
LOC: FTE 08:56 → SDS 12:54 → MS1 12:55 → SDS 18:26 → MS1 11-01 20:29
PROVIDERS: ADMIT Internal Medicine; ATTEND Surgery
PROC: 0DTJ4ZZ Resection of Appendix, Percutaneous Endoscopic Approach (ICD-10-PCS; principal; 2016-10-31 19:00)
DX: K35.3 Acute appendicitis with localized peritonitis (principal)
CPT/HCPCS: 36415; 71010; 74176; 80048; 80053; 81001; 81003; 83690; 85025; 85610; 85730; 88304; 93005; 96374; J0295; J0330; J0690; J1100; J1170; J1885; J2250; J2270; J2405; J2543; J2710; J3010; J7030

== ENCOUNTER 2017-08-18 22:03 | Emergency (ER) | END 2017-08-19 04:13 | disposition home or self-care (01) ==

== ENCOUNTER 2017-08-24 00:18 | Emergency (ER) | END 2017-08-24 04:25 | disposition home or self-care (01) ==

== ENCOUNTER 2018-08-27 12:58 | Emergency (ER) | payer BC ==
[~2018-08-27] VITALS: Wt 67.7 kg
[~2018-08-27 12:58] MED LIST changes: +AMOX1TAB10 PO; -BACTDS PO; -CEFAZOLIN 1 GM INJ ONE; -CEPH-443 PO; +DOCU-216 PO; -EXEDRIN; +HYDR-3601 PO; +HYDR-4011 PO; -IBUP-1542 PO; +NITR-58 PO; +PANT40TA4 PO; +PHEN-537 PO
--- NOTE | 2018-08-27 13:39 | ERD ---
ER Documentation Chief Complaint Chief Complaint AP, RIGHT RIB CAGE X 3 DAYS HPI 28-year-old female, previously healthy, presents to the emergency department, complaining of 3 days with persistent epigastric abdominal pain, radiating to the right, the pain is sharp, constant, 6/10. No fever, no chills. No diarrhea or constipation. No urinary symptoms, no cough or upper respiratory symptoms. ROS All systems reviewed and are negative except as per history of present illness. Medications Home Meds Active Scripts Acetaminophen* (Tylenol*) 325 Mg Tablet, 2 TAB PO Q8 PRN for PAIN AND OR ELEVATED TEMP, #20 TAB Prov:DANIEL CHAVEZ MD 08/27/18 Ranitidine Hcl* (Ranitidine Hcl*) 150 Mg Tablet, 150 MG PO Q12, #10 TAB Prov:DANIEL CHAVEZ MD 08/27/18 Phenazopyridine Hcl* (Pyridium*) 100 Mg Tab, 100 MG PO TID PRN for URINARY PAIN, #8 TAB Prov:LAURI STAFFORD PA-C 08/24/17 Nitrofurantoin Monohyd Macrocr* (Macrobid*) 100 Mg Capsr, 100 MG PO HS for 7 Days, CAP Prov:LAURI STAFFORD PA-C 08/24/17 Ondansetron (Ondansetron Odt) 4 Mg Tab.rapdis, 4 MG PO Q6H PRN for NAUSEA AND/OR VOMITING, #20 TAB Prov:CESAR TY NP 08/19/17 Hydrocodone/Acetaminophen ([place] 5-325 Tablet) 1 Each Tablet, 1 TAB PO Q6H PRN for SEVERE PAIN LEVEL 7-10, #20 TAB Prov:CESAR TY NP 08/19/17 Pantoprazole* (Pantoprazole*) 40 Mg Tablet.dr, 40 MG PO DAILY, #30 Prov:JOSE ALBERTO GRIGGS 11/02/16 Docusate Sodium (Dok) 100 Mg Capsule, 100 MG PO DAILY, #20 CAP Prov:JOSE ALBERTO GRIGGS 11/02/16 Amoxicillin/Potassium Clav (Amox-Clav 875-125 mg Tablet) 875-125 mg Tab, 1 TAB PO BID for 7 Days, #20 TAB Prov:JOSE ALBERTO GRIGGS 11/02/16 Hydrocodone Bit-Acetaminophen (Hydrocodone Bit-APAP) 5-325MG Tablet, 1 TAB PO Q6H PRN for PAIN LEVEL 6-10, #10 TAB Prov:JOSE ALBERTO GRIGGS 11/02/16 Allergies Allergies: Coded Allergies: doxycycline (Verified Allergy, Mild, 10/31/16) PMhx/Soc History of Surgery: No Anesthesia Reaction: No Hx Neurological Disorder: No Hx Respiratory Disorders: No Hx Cardiac Disorders: No Hx Psychiatric Problems: No Hx Miscellaneous Medical Probl: No Hx Alcohol Use: No Hx Substance Use: No Hx Tobacco Use: No FmHx Family History: No diabetes, No coronary disease Physical Exam Vitals Physical Exam Const: No acute distress Head: Atraumatic Eyes: Normal Conjunctiva ENT: Normal External Ears, Nose and Mouth. Neck: Full range of motion. No meningismus. Resp: Clear to auscultation bilaterally Cardio: Regular rate and rhythm, no murmurs Abd: Soft, tender in the epigastric area, negative Bruce signs, no peritoneal signs, no masses. Skin: No petechiae or rashes Back: No midline or flank tenderness Ext: No cyanosis, or edema Neur: Awake and alert Psych: Normal Mood and Affect Results 24 hrs Laboratory Tests Test 08/27/18 13:43 08/27/18 13:44 08/27/18 13:47 Bedside Urine pH (LAB) 6.0 Bedside Urine Protein (LAB) Negative Bedside Urine Glucose (UA) Negative Bedside Urine Ketones (LAB) Negative Bedside Urine Blood Trace-intact Bedside Urine Nitrite (LAB) Negative Bedside Urine Leukocyte Esterase Negative (L POC Beta HCG, Qualitative NEGATIVE White Blood Count 5.7 10^3/ul Red Blood Count 4.17 10^6/ul Hemoglobin 13.3 g/dl Hematocrit 39.1 % Mean Corpuscular Volume 93.8 fl Mean Corpuscular Hemoglobin 31.9 pg Mean Corpuscular 34.0 g/dl Hemoglobin Concent Red Cell Distribution Width 12.0 % Platelet Count 316 10^3/UL Mean Platelet Volume 9.5 fl Immature Granulocytes % 0.500 % Neutrophils % 69.5 % Lymphocytes % 21.3 % Monocytes % 7.0 % Eosinophils % 1.2 % Basophils % 0.5 % Nucleated Red Blood Cells % 0.0 /100WBC Immature Granulocytes # 0.030 10^3/ul Neutrophils # 4.0 10^3/ul Lymphocytes # 1.2 10^3/ul Monocytes # 0.4 10^3/ul Eosinophils # 0.1 10^3/ul Basophils # 0.0 10^3/ul Nucleated Red Blood Cells # 0.0 10^3/ul Sodium Level 142 mmol/L Potassium Level 3.9 mmol/L Chloride Level 103 mmol/L Carbon Dioxide Level 29 mmol/L Anion Gap 10 Blood Urea Nitrogen 12 mg/dl Creatinine 0.53 mg/dl Est Glomerular Filtrat Rate mL/min > 60 mL/min Glucose Level 95 mg/dl Calcium Level 9.6 mg/dl Total Bilirubin 0.6 mg/dl Direct Bilirubin 0.00 mg/dl Indirect Bilirubin 0.6 mg/dl Aspartate Amino Transf (AST/SGOT) 19 IU/L Alanine 19 IU/L Aminotransferase (ALT/SGPT) Alkaline Phosphatase 59 IU/L Total Protein 8.4 g/dl Albumin 4.8 g/dl Globulin 3.60 g/dl Albumin/Globulin Ratio 1.33 Lipase 137 U/L DIAGNOSTIC IMAGING REPORT Patient: SHARON WHITFIELD : 1990 Age: 28 Sex: F MR #: [id number] DOS: 08/27/18 1336 Ordering MD: DANIEL CHAVEZ MD Location: [facility] Room/Bed: PROCEDURE: Right upper quadrant abdominal ultrasound. CLINICAL INDICATION: Abdominal pain TECHNIQUE: Larkin scale and color doppler ultrasound images of the right upper quadrant of the abdomen. COMPARISON: CT 08/19/2017 FINDINGS: Pancreas: Visualized portions appear of normal echogenicity without focal lesions. Liver: Morphology:Normal in size. Contour:Normal, no evidence of nodularity. Echogenicity: Normal. Focal lesions:None. Main portal vein: Patent with hepatopetal flow. Biliary System: Gallbladder wall: Normal thickness. Gallstones: None. Intrahepatic bile ducts: Normal caliber. Common bile duct diameter (mm): 2.7 Kidneys: Right length (cm) : 11.2 Right cortical thickness: Normal. Echogenicity: Normal. Hydronephrosis: None. Renal calculi: None. Focal lesions: None. Free fluid/ascites: None. Other findings: None. IMPRESSION: Normal gallbladder without gallstones. Normal examination. RPTAT: AADD .Jimmie Taylor MD, MD Date Time Electronically viewed and signed by .Jimmie Taylor MD, MD on 08/27/2018 14:17 .B/ CC: DANIEL CHAVEZ MD [id number] Procedures/MDM Vital signs stable. Differential diagnosis include but not limited to: UTI, colitis, gastroenteritis, kidney stones, irritable bowel syndrome, inflammatory bowel syndrome, malabsorption syndrome, cholelithiasis, food intolerance, medication side effect, pancreatitis, diverticulitis, bowel obstruction. Physical examination and clinical presentation consistent most likely with GERD. During the ED course the patient remained stable, no new complaints. Results and clinical impression discussed with the patient who agrees with management. Medical decision making shared with patient and family. The patient is stable to be treated outpatient and will be discharged home; some side effects of prescribed medications (headache, rash, nausea, vomiting, diarrhea, drowsiness, habituation, bleeding, hypertension, interactions with other medications) were reviewed. Follow up with the primary care provider in the next 48h is recommended. If symptoms persist, worsen or new symptoms develop, then patient should return to the ED immediately. Instructions explained and given directly by me to the patient with acknowledgment and demonstrated understanding. Disclaimer: Inadvertent spelling and grammatical errors are likely due to EHR/dictation software use and do not reflect on the overall quality of patient care. Also, please note that the electronic time recorded on this note does not necessarily reflect the actual time of the patient encounter. Departure Diagnosis: Primary Impression: Right upper quadrant abdominal pain Additional Impression: GERD (gastroesophageal reflux disease) Condition: Stable Additional Instructions: Thank you very much for allowing us to participate in your care. Your health and safety is our top priority at [facility]. Call your primary care doctor TOMORROW for an appointment during the next 2-4 days and bring all the information and medications prescribed. Have prescriptions filled and follow precisely the directions on the label. If the symptoms get worse and your provider is unavailable, return to the Emergency Department immediately. DANIEL CHAVEZ MD Aug 27, 2018 13:39
[2018-08-27] MEDS ORDERED: RANI150T5 PO (15:48)
[2018-08-27] MEDS ORDERED: ACET325T33 PO (15:48)
== END 2018-08-27 16:13 | disposition home or self-care (01) ==
LOC: FTE 12:58
DX: K21.9 Gastro-esophageal reflux disease without esophagitis (principal)
CPT/HCPCS: 76705; 80053; 81003; 81025; 83690; 85025